=== PATIENT | female | born 1995 | race American Indian/Alaskan Native ===

== ENCOUNTER 2017-10-17 07:22 | Inpatient (IN) | payer MEDICAID ==
--- NOTE | 2017-10-17 08:00 | History and Physical Report ---
History of Present Illness Date of examination: 10/17/17 Chief complaint: PPROM @ 29 weeks, 10/17/17 @ 0200 History of present illness: EDC Calculations LMP: 12/27/2017 Past History : 2 Term Births: 1 Premature Births: 0 Living Children: 1 Para: 1 Mult. Births: 0 Prev : 0 Aborta: 0 Elect. Ab: 0 Spont. Ab: 0 Ectopics: 0 # 1 Delivery date: 2013 Weeks Gestation: term labor: no Delivery type: Delivery location: [facility] [place] Sex: Female weight: 6? Past Medical History: Negative Past Medical History Past Surgical History: breast bx right side, unsure results but was told benign Past Medical History Anesthesia Complications: negative Anemia: negative Autoimmune Disorder: negative Bleeding Disorder: negative Blood Transfusions: negative Diabetes: negative Heart Disease: negative Hypertension: negative Hepatitis/Liver Disease: negative Kidney Disease/UTI: negative Neurologic/Epilepsy/Migraines: negative Phlebitis/Varicosities: negative Psychiatric: negative Pulmonary Disease/Asthma: negative Thyroid Disease: negative Hospitalizations: negative 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 of genital herpes: no Partner hx. of genital herpes: no Rash, Viral, or Febrile illness since last LMP? no Varicella/Chicken Pox Status: Previous Disease Genetic History Congenital Heart Defect: Mom: no Dad: no Rivera Disease: Mom: no Dad: no Thalassemia Mom: no Dad: no Neural Tube Defect Mom: no Dad: no Down's Syndrome Mom: no Dad: no Refugio-Sachs Mom: no Dad: no Sickle Cell Disease/Trait Mom: no Dad: no Hemophilia Mom: no Dad: no Muscular Dystrophy Mom: no Dad: no Cystic Fibrosis Mom: no Dad: no [place] Chorea Mom: no Dad: no Mental Retardation Mom: no Dad: no Fragile X Mom: no Dad: no Other Genetic/Chromosomal Disorder Mom: no Dad: no Child w/other defect Mom: no Dad: no Enviromental Exposures Xray Exposure: no Medication, drug, or alcohol use since LMP: no Chemical/Other Exposure: no Exposure to Cat Liter: no Hx of Parvovirus (Fifth Disease): no Occupational Exposure to Children: none Current Allergies (reviewed today): No known allergies Past History Past Medical History: other (see HPI) Past Surgical History: other (see HPI) 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) Family/Genetic History: other (see HPI) - Obstetrical History Expected Date of Delivery: 12/27/17 Actual Gestation: 29 Week(s) 6 Day(s) : 2 Para: 1 Hx # Term Pregnancies: 1 Number of Pregnancies: 0 Spontaneous Abortions: 0 Induced : 0 Number of Living Children: 1 Medications and Allergies Allergies Allergy/AdvReac Type Severity Reaction Status Date / Time No Known Allergies Allergy Verified 10/17/17 07:36 Home Medications Medication Instructions Recorded Confirmed Last Taken Type Vit Calc,Iron,Folic 1 each PO DAILY 10/17/17 10/17/17 10/16/17 20:00 History [ Vitamins] 1 Active Meds: Active Medications Lactated Ringer's (Lactated Ringers) 1,000 mls @ 999 mls/hr IV BOLUS ONE Stop: 10/17/17 08:38 Review of Systems All systems: negative - Vital Signs Vital signs: Vital Signs Pulse BP 80 113/72 10/17/17 07:51 10/17/17 07:51 Temp Pulse Resp BP Pulse Ox 80 113/72 10/17/17 07:51 10/17/17 07:51 - Physical Exam Breasts: Positive: normal Cardiovascular: Regular rate Lungs: Positive: Clear to auscultation, Normal air movement Abdomen: Positive: normal appearance, soft Genitourinary (Female): Positive: normal external genitalia, normal perenium Vulva: both: normal Vagina: Positive: normal moisture (+ clear amniotic fluid) Uterus: Positive: normal size, normal contour Anus/Rectum: Positive: normal perianal skin Extremities: Positive: normal Deep Tendon Reflex Grade: Normal +2 - Obstetrical FHR: auscultation normal, category 1 Uterine Contraction Monitor Mode: External Cervical Dilatation: 1.5 (per triage nurse, not rechecked d/t PPROM) Uterine Contraction Pattern: Irregular Uterine Tone Measurement Phase: Contraction Uterine Contraction Intensity: Mild Results Result Diagrams: 10/17/17 08:15 All other labs normal. Assessment and Plan 22y/o @ 29+6 weeks admitted as antepartum patient d/t PPROM this morning @ 0200 - clear fluid. Gross SROM with + nitrazine. She reports occasional lower abd pain. Plan to admit to labor and delivery for steroids, mag sulfate, IV antibiotics, u/s for EFW/KRISTIN and presentation, NICU and AMFM consult. Plan reviewed with patient, opportunity provided for questions. All questions addressed. Admission orders in EMR. Dr. Torres consulted. - Patient Problems (1) 29 weeks gestation of Current Visit: Yes Status: Acute (2) premature rupture of membranes (PPROM) with unknown onset of labor Current Visit: Yes Status: Acute
[2017-10-17] MEDS ORDERED: ALUM-MAG HYDROX-SIMETH 200-200-20MG/5ML PO PRN (09:00)
[2017-10-17] MEDS ORDERED: TYLENOL PO PRN (09:00)
[2017-10-17] MEDS ORDERED: LACTATED RINGERS 1,000 ML IV ONE (09:00)
[2017-10-17] MEDS ORDERED: TUCKS PAD TP PRN (09:00)
[2017-10-17] MEDS ORDERED: COLACE PO PRN (09:00)
[2017-10-17] MEDS ORDERED: ZOFRAN IV PRN (09:00)
[2017-10-17] MEDS ORDERED: BENADRYL PO PRN (09:00)
[2017-10-17] MEDS: CELESTONE SOLUSPAN IM SCH (09:10)
[2017-10-17] MEDS: POLYCILLIN/NS 2 GM/100 ML 2 GM/100 ML BAG IV SCH ×3 (09:15→21:26)
[2017-10-17 09:30] LABS: Basophils % (Auto) 0.5 % (0.0-1.8); Eosinophils # (Auto) 0.1 K/mm3 (0.0-0.4); Eosinophils % (Auto) 1.7 % (0.0-4.3); Hematocrit 28.3 % (30.3-42.9); Hemoglobin 9.6 gm/dl (10.1-14.3); Lymphocytes # (Auto) 1.3 K/mm3 (1.2-5.4); Lymphocytes % (Auto) 25.3 % (13.4-35.0); Mean Corpuscular HGB Conc 34 % (30-34); Mean Corpuscular Hemoglobin 30 pg (28-32); Mean Corpuscular Volume 89 fl (79-97); Monocytes # (Auto) 0.4 K/mm3 (0.0-0.8); Monocytes % (Auto) 8.7 % (0.0-7.3); Platelet Count 169 K/mm3 (140-440); Red Blood Count 3.18 M/mm3 (3.65-5.03); Red Cell Distribution Width 12.7 % (13.2-15.2)
[2017-10-17] MEDS ORDERED: SUDAFED PO PRN (09:30)
[2017-10-17] MEDS ORDERED: DEEP SEA NS PRN (09:30)
[2017-10-17] MEDS ORDERED: MYLICON PO PRN (09:30)
[2017-10-17 09:43] LABS: Bacteria,Urine 1+ /HPF (Negative); Bilirubin,Urine NEG (Negative); Blood,Urine SM (Negative); Color,Urine Yellow (Yellow); Mucus,Urine FEW /HPF; Protein,Urine <15 mg/dL mg/dL (Negative); Urobilinogen,Urine < 2.0 mg/dL (<2.0)
[2017-10-17] MEDS: MAGNESIUM SULFATE 40GM/1000ML 40 GM/1,000 ML BAG IV SCH (09:56)
[2017-10-17] MEDS ORDERED: PRENATAL VITAMIN PO SCH (10:00)
[2017-10-17] MEDS ORDERED: MAGNESIUM SULFATE 4GM/100ML 4 GM/100 ML BAG IV ONE (10:00)
[2017-10-17] MEDS ORDERED: AMBIEN PO PRN (10:00)
[2017-10-17] MEDS ORDERED: MILK OF MAGNESIA PO PRN (10:00)
--- NOTE | 2017-10-17 10:57 | Ultrasound Report ---
OB ULTRASOUND FOLLOWUP History estimated weight, presentation, KRISTIN. Technique: Transabdominal ultrasound with Doppler interrogation. Gestation: Single Position: Cephalic Amniotic Fluid: Lower limits of normal KRISTIN = 7.1 cm Heart Rate: 143 BPM BPD: 7.4 cm = 29 w 4 d HC: 27.7 cm = 30 w 2 d AC: 24.1 cm = 28 w 3 d FL: 6.0 cm = 31 w 3 d HC/AC Ratio: 1.2 Cephalic Index: 76.6 Estimated Weight: 1434 grams. 31st percentile. Clinical age = 29 w 6 d EDC: 12/27/17 US Gest. Age = 30 w 0 d EDC: 12/26/17 IMPRESSION: Viable, single intrauterine as described.
[2017-10-17] MEDS: ZITHROMAX 500 MG in NACL 0.9% 250ML 250 ML IV SCH (11:34)
--- NOTE | 2017-10-17 21:31 | Consultation ---
History of Present Illness Consult date: 10/17/17 Requesting physician: RIYA MONTENEGRO Documentation - Maternal Info Events: Premature Rupture Membrane Maternal Blood Type: B (+) positive HbsAg: Negative HIV: Negative RPR/VDRL: Non-reactive Group Beta Strep: Unknown Rubella: Immune Amniotic Membrane Rupture Date: 10/17/17 Amniotic Membrane Rupture Time: 02:00 - information: Height 5 ft 3 in Medications and Allergies Allergies Allergy/AdvReac Type Severity Reaction Status Date / Time No Known Allergies Allergy Verified 10/17/17 07:36 Home Medications Medication Instructions Recorded Confirmed Last Taken Type Vit Calc,Iron,Folic 1 each PO DAILY 10/17/17 10/17/17 10/16/17 20:00 History [ Vitamins] 1 Active Meds: Active Medications Acetaminophen (Tylenol) 650 mg PO Q4H PRN PRN Reason: Pain MILD(1-3)/Fever >100.5/MOTTA Al Hydrox/Mg Hydrox/Simethicone (Alum-Mag Hydrox-Simeth [id number]/5ml) 30 ml PO Q6H PRN PRN Reason: Indigestion Betamethasone Acet/Betameth SodPhos (Celestone Soluspan) 12 mg IM Q24HR JOHNNY Stop: 10/18/17 10:01 Last Admin: 10/17/17 09:10 Dose: 12 mg Diphenhydramine HCl (Benadryl) 25 mg PO Q6H PRN PRN Reason: Itching Docusate Sodium (Colace) 100 mg PO Q12H PRN PRN Reason: Constipation Guaifenesin (Guaifenesin Dm Syrup) 10 ml PO Q6H PRN PRN Reason: Cough Ampicillin Sodium (Polycillin/Ns 2 Gm/100 Ml) 2 gm in 100 mls @ 100 mls/hr IV Q6H JOHNNY; Protocol Stop: 10/19/17 03:59 Last Admin: 10/17/17 15:12 Dose: 100 mls/hr Azithromycin 500 mg/ Sodium (Chloride) 250 mls @ 250 mls/hr IV Q24HR JOHNNY Last Admin: 10/17/17 11:34 Dose: 250 mls/hr Magnesium Sulfate (Magnesium Sulfate 40gm/1000ml) 40 gm in 1,000 mls @ 50 mls/ hr IV DIRECT JOHNNY Last Admin: 10/17/17 09:56 Dose: 2 gm/hr, 50 mls/hr Magnesium Hydroxide (Milk Of Magnesia) 30 ml PO QHS PRN PRN Reason: Laxative Effect Multivitamins/Iron/Calcium ( Vitamin) 1 each PO QDAY JOHNNY Ondansetron HCl (Zofran) 4 mg IV Q6H PRN PRN Reason: Nausea And Vomiting Pseudoephedrine HCl (Sudafed) 30 mg PO Q4H PRN PRN Reason: Nasal Congestion Simethicone (Mylicon) 80 mg PO Q6H PRN PRN Reason: Gas pain Sodium Chloride (Deep Sea) 2 spray NS Q4H PRN PRN Reason: Congestion Witch Dary/Glycerin (Tucks Pad) 1 each TP PRN PRN PRN Reason: Hemorrhoids Zolpidem Tartrate (Ambien) 10 mg PO ONCE PRN PRN Reason: Sleep Exam Vital Signs Pulse BP 80 113/72 10/17/17 07:51 10/17/17 07:51 Temp Pulse Resp BP Pulse Ox 97.7 F 91 H 20 114/68 100 10/17/17 20:00 10/17/17 20:59 10/17/17 20:00 10/17/17 20:59 10/17/17 20:00 Results - Laboratory Findings 10/17/17 08:15 Abnormal lab results 10/17/17 10/17/17 10/17/17 Range/Units 08:15 13:55 20:07 RBC 3.18 L (3.65-5.03) M/mm3 Hgb 9.6 L (10.1-14.3) gm/dl Hct 28.3 L (30.3-42.9) % RDW 12.7 L (13.2-15.2) % [place] % (Auto) 8.7 H (0.0-7.3) % Magnesium 4.60 H 5.40 H (1.7-2.3) mg/dL Assessment and Plan Discussed with Mother and FOB (FOB was on phone and Mother asked that FOB be included on speaker phone) delivery room process once was delivered. Discussed possible need for intubation and need of surfactant administration as well as possible need for CPAP. Also discussed need for Umbilical catheter administation for [facility] IV access and IV nutrition. Mother voices understanding and voices that she would like to breastfeed. Informed mother that we encourage her to pump for breastmilk for once born for feeds once respiratory status of is stabilized. Discussed the need to follow with [facility] for risk of IVH d/t prematurity less than 32 weeks. Also, discussed need for eye exams @ 30 days of age for born 30 weeks or less for ROP. Parents asked appropriate questions and appropiately concerned for . Discussed survival rate of 85-90% for 29-30 week gestation newborns. Mother currently on MgSo4 and reports that she will receive her second dose of betamethasone at 0900 11/18 and is on antibiotics d/t PROM. Mother voices that she has once previous child that will soon turn 3 and was born at 37 weeks with no medical problems at or currently. Both Mother and FOB repport no major illnesses.
[2017-10-17] MEDS: LACTATED RINGERS 1,000 ML IV SCH (23:26)
[2017-10-18] MEDS: POLYCILLIN/NS 2 GM/100 ML 2 GM/100 ML BAG IV SCH ×2 (02:53→13:37)
[2017-10-18] MEDS: MAGNESIUM SULFATE 40GM/1000ML 40 GM/1,000 ML BAG IV SCH (04:52)
--- NOTE | 2017-10-18 07:26 | Progress Note ---
Assessment and Plan pt resting states she has tolerated therapy with minimal SE. Reports +FM, LOF continues Leaking. VSS Cat 1 strip for 30 weeks No CTX recorded nor reported. MGSO4 continues @ 2gm/hr Second dose BMZ due @ 0900. IUP @ 30 weeks with PPROM P : continue POC as ordered. to be consulted. - Patient Problems (1) 30 weeks gestation of Current Visit: Yes Status: Acute Subjective - Subjective Date of service: 10/18/17 (pt w/o complaint) Principal diagnosis: IUP @ 30w0d with PPROM Patient reports: loss of fluid (pt does report leaking fluid continues), movement normal Objective - Vital Signs Vital Signs: Vital Signs - 12hr 10/17/17 10/17/17 10/17/17 19:28 19:58 20:00 Temperature 97.7 F Pulse Rate 96 H 94 H 94 H Respiratory 20 Rate Blood Pressure 108/58 115/59 Blood Pressure 115/59 [Right] O2 Sat by Pulse 100 Oximetry 10/17/17 10/17/17 10/17/17 20:28 20:59 21:29 Temperature Pulse Rate 96 H 91 H 96 H Respiratory Rate Blood Pressure 101/56 114/68 105/57 Blood Pressure [Right] O2 Sat by Pulse Oximetry 10/17/17 10/17/17 10/17/17 21:58 22:28 22:58 Temperature Pulse Rate 91 H 83 87 Respiratory Rate Blood Pressure 111/59 92/54 105/57 Blood Pressure [Right] O2 Sat by Pulse Oximetry 10/17/17 10/17/17 10/17/17 23:27 23:28 23:30 Temperature 97.2 F L Pulse Rate 86 86 86 Respiratory 20 Rate Blood Pressure 106/59 Blood Pressure 106/59 [Right] O2 Sat by Pulse 100 100 Oximetry 10/17/17 10/18/17 10/18/17 23:59 00:28 00:59 Temperature Pulse Rate 88 86 83 Respiratory Rate Blood Pressure 109/56 108/60 109/57 Blood Pressure [Right] O2 Sat by Pulse Oximetry 10/18/17 10/18/17 10/18/17 01:28 01:58 02:28 Temperature Pulse Rate 77 75 77 Respiratory Rate Blood Pressure 95/53 88/52 92/51 Blood Pressure [Right] O2 Sat by Pulse Oximetry 10/18/17 10/18/17 10/18/17 02:30 02:35 02:40 Temperature Pulse Rate 85 76 76 Respiratory Rate Blood Pressure Blood Pressure [Right] O2 Sat by Pulse 96 96 96 Oximetry 10/18/17 10/18/17 10/18/17 02:45 02:50 02:55 Temperature Pulse Rate 75 79 74 Respiratory Rate Blood Pressure Blood Pressure [Right] O2 Sat by Pulse 96 93 95 Oximetry 10/18/17 10/18/17 10/18/17 02:58 03:00 03:05 Temperature Pulse Rate 73 70 72 Respiratory Rate Blood Pressure 99/56 Blood Pressure [Right] O2 Sat by Pulse 96 96 Oximetry 10/18/17 10/18/17 10/18/17 03:10 03:15 03:20 Temperature Pulse Rate 72 74 74 Respiratory Rate Blood Pressure Blood Pressure [Right] O2 Sat by Pulse 96 96 96 Oximetry 10/18/17 10/18/17 10/18/17 03:25 03:28 03:30 Temperature Pulse Rate 75 75 76 Respiratory Rate Blood Pressure 100/58 Blood Pressure [Right] O2 Sat by Pulse 96 96 Oximetry 10/18/17 10/18/17 10/18/17 03:35 03:40 03:45 Temperature Pulse Rate 76 74 76 Respiratory Rate Blood Pressure Blood Pressure [Right] O2 Sat by Pulse 96 96 96 Oximetry 10/18/17 10/18/17 10/18/17 03:50 03:55 03:56 Temperature Pulse Rate 75 77 75 Respiratory Rate Blood Pressure Blood Pressure [Right] O2 Sat by Pulse 96 96 93 Oximetry 10/18/17 10/18/17 10/18/17 03:59 04:00 04:05 Temperature 97.4 F L Pulse Rate 71 71 70 Respiratory 16 Rate Blood Pressure 97/53 Blood Pressure 97/53 [Right] O2 Sat by Pulse 97 96 Oximetry 10/18/17 10/18/17 10/18/17 04:10 04:15 04:19 Temperature Pulse Rate 74 87 83 Respiratory Rate Blood Pressure Blood Pressure [Right] O2 Sat by Pulse 96 97 92 Oximetry 10/18/17 10/18/17 10/18/17 04:20 04:25 04:28 Temperature Pulse Rate 78 71 71 Respiratory Rate Blood Pressure 98/55 Blood Pressure [Right] O2 Sat by Pulse 99 99 Oximetry 10/18/17 10/18/1710/18/18 04:30 04:35 04:40 Temperature Pulse Rate 70 68 69 Respiratory Rate Blood Pressure Blood Pressure [Right] O2 Sat by Pulse 99 98 98 Oximetry 10/18/17 10/18/17 10/18/17 04:45 04:50 04:55 Temperature Pulse Rate 72 77 81 Respiratory Rate Blood Pressure Blood Pressure [Right] O2 Sat by Pulse 97 99 98 Oximetry 10/18/17 10/18/17 10/18/17 04:58 05:00 05:05 Temperature Pulse Rate 76 80 74 Respiratory Rate Blood Pressure 105/57 Blood Pressure [Right] O2 Sat by Pulse 99 98 Oximetry 10/18/17 10/18/17 10/18/17 05:10 05:15 05:20 Temperature Pulse Rate 74 71 73 Respiratory Rate Blood Pressure Blood Pressure [Right] O2 Sat by Pulse 98 97 97 Oximetry 10/18/17 10/18/17 10/18/17 05:25 05:28 05:30 Temperature Pulse Rate 74 69 77 Respiratory Rate Blood Pressure 108/51 Blood Pressure [Right] O2 Sat by Pulse 97 95 Oximetry 10/18/17 10/18/17 10/18/17 05:35 05:40 05:45 Temperature Pulse Rate 76 76 71 Respiratory Rate Blood Pressure Blood Pressure [Right] O2 Sat by Pulse 96 97 97 Oximetry 10/18/17 10/18/17 10/18/17 05:50 05:55 05:58 Temperature Pulse Rate 74 76 71 Respiratory Rate Blood Pressure 107/55 Blood Pressure [Right] O2 Sat by Pulse 96 97 Oximetry 10/18/17 10/18/17 10/18/17 06:00 06:05 06:10 Temperature Pulse Rate 77 69 75 Respiratory Rate Blood Pressure Blood Pressure [Right] O2 Sat by Pulse 97 98 97 Oximetry 10/18/17 10/18/17 10/18/17 06:15 06:20 06:24 Temperature Pulse Rate 76 80 96 H Respiratory Rate Blood Pressure Blood Pressure [Right] O2 Sat by Pulse 98 96 91 Oximetry 10/18/17 10/18/17 10/18/17 06:25 06:28 06:30 Temperature Pulse Rate 87 78 75 Respiratory Rate Blood Pressure 112/74 Blood Pressure [Right] O2 Sat by Pulse 98 98 Oximetry 08/30/18 08/30/18 08/30/18 06:35 06:40 06:45 Temperature Pulse Rate 71 72 74 Respiratory Rate Blood Pressure Blood Pressure [Right] O2 Sat by Pulse 99 98 98 Oximetry 10/18/17 10/18/17 10/18/17 06:50 06:55 06:58 Temperature Pulse Rate 71 78 77 Respiratory Rate Blood Pressure 101/57 Blood Pressure [Right] O2 Sat by Pulse 99 98 Oximetry - Exam Breasts: deferred Cardiovascular: Regular rate Lungs: Clear to auscultation, Normal air movement Abdomen: Present: normal appearance, soft. Absent: distention, tenderness Uterus: Present: normal FHR: auscultation normal, category 1 Uterine Contraction Monitor Mode: External Uterine Contraction Pattern: Absent Uterine Tone Measurement Phase: Resting Extremities: normal Deep Tendon Reflex Grade: Normal +2 - Labs Labs: Abnormal Labs 10/17/17 10/17/17 10/17/17 08:15 13:55 20:07 RBC 3.18 L Hgb 9.6 L Hct 28.3 L RDW 12.7 L [place] % (Auto) 8.7 H Magnesium 4.60 H 5.40 H 10/18/17 02:27 RBC Hgb Hct RDW [place] % (Auto) Magnesium 5.70 H Laboratory Results - last 24 hr 10/17/17 10/17/17 10/17/17 07:35 08:15 08:15 WBC 5.1 RBC 3.18 L Hgb 9.6 L Hct 28.3 L MCV 89 MCH 30 MCHC 34 RDW 12.7 L Plt Count 169 Lymph % (Auto) 25.3 [place] % (Auto) 8.7 H Eos % (Auto) 1.7 Baso % (Auto) 0.5 Lymph # 1.3 [place] # 0.4 Eos # 0.1 Baso # 0.0 Seg Neutrophils % 63.8 Seg Neutrophils # 3.3 Magnesium Urine Color Yellow Urine Turbidity Clear Urine pH 7.0 Ur Specific [place] 1.006 Urine Protein <15 mg/dl Urine Glucose (UA) Neg Urine Ketones Tr Urine Blood Sm Urine Nitrite Neg Urine Bilirubin Neg Urine Urobilinogen < 2.0 Ur Leukocyte Esterase Sm Urine WBC (Auto) 6.0 Urine RBC (Auto) 3.0 U Epithel Cells (Auto) 3.0 Urine Bacteria (Auto) 1+ Urine Mucus Few Blood Type B POSITIVE Antibody Screen Negative 10/17/17 10/17/17 10/18/17 13:55 20:07 02:27 WBC RBC Hgb Hct MCV MCH MCHC RDW Plt Count Lymph % (Auto) [place] % (Auto) Eos % (Auto) Baso % (Auto) Lymph # [place] # Eos # Baso # Seg Neutrophils % Seg Neutrophils # Magnesium 4.60 H 5.40 H 5.70 H Urine Color Urine Turbidity Urine pH Ur Specific [place] Urine Protein Urine Glucose (UA) Urine Ketones Urine Blood Urine Nitrite Urine Bilirubin Urine Urobilinogen Ur Leukocyte Esterase Urine WBC (Auto) Urine RBC (Auto) U Epithel Cells (Auto) Urine Bacteria (Auto) Urine Mucus Blood Type Antibody Screen
--- NOTE | 2017-10-18 08:12 | Consultation ---
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) Family/Genetic History: other (see HPI) - Obstetrical History : 2 Medications and Allergies Allergies Allergy/AdvReac Type Severity Reaction Status Date / Time No Known Allergies Allergy Verified 10/17/17 07:36 Home Medications Medication Instructions Recorded Confirmed Last Taken Type Vit Calc,Iron,Folic 1 each PO DAILY 10/17/17 10/17/17 10/16/17 20:00 History [ Vitamins] 1 Active Meds: Active Medications Acetaminophen (Tylenol) 650 mg PO Q4H PRN PRN Reason: Pain MILD(1-3)/Fever >100.5/MOTTA Al Hydrox/Mg Hydrox/Simethicone (Alum-Mag Hydrox-Simeth [id number]/5ml) 30 ml PO Q6H PRN PRN Reason: Indigestion Betamethasone Acet/Betameth SodPhos (Celestone Soluspan) 12 mg IM Q24HR JOHNNY Stop: 10/18/17 10:01 Last Admin: 10/17/17 09:10 Dose: 12 mg Diphenhydramine HCl (Benadryl) 25 mg PO Q6H PRN PRN Reason: Itching Docusate Sodium (Colace) 100 mg PO Q12H PRN PRN Reason: Constipation Guaifenesin (Guaifenesin Dm Syrup) 10 ml PO Q6H PRN PRN Reason: Cough Ampicillin Sodium (Polycillin/Ns 2 Gm/100 Ml) 2 gm in 100 mls @ 100 mls/hr IV Q6H JOHNNY; Protocol Stop: 10/19/17 03:59 Last Admin: 10/18/17 02:53 Dose: 100 mls/hr Azithromycin 500 mg/ Sodium (Chloride) 250 mls @ 250 mls/hr IV Q24HR JOHNNY Last Admin: 10/17/17 11:34 Dose: 250 mls/hr Magnesium Sulfate (Magnesium Sulfate 40gm/1000ml) 40 gm in 1,000 mls @ 50 mls/ hr IV DIRECT JOHNNY Last Admin: 10/18/17 04:52 Dose: 2 gm/hr, 50 mls/hr Lactated Ringer's (Lactated Ringers) 1,000 mls @ 75 mls/hr IV DIRECT JOHNNY Last Admin: 10/17/17 23:26 Dose: 75 mls/hr Magnesium Hydroxide (Milk Of Magnesia) 30 ml PO QHS PRN PRN Reason: Laxative Effect Multivitamins/Iron/Calcium ( Vitamin) 1 each PO QDAY JOHNNY Ondansetron HCl (Zofran) 4 mg IV Q6H PRN PRN Reason: Nausea And Vomiting Pseudoephedrine HCl (Sudafed) 30 mg PO Q4H PRN PRN Reason: Nasal Congestion Simethicone (Mylicon) 80 mg PO Q6H PRN PRN Reason: Gas pain Sodium Chloride (Deep Sea) 2 spray NS Q4H PRN PRN Reason: Congestion Witch Dary/Glycerin (Tucks Pad) 1 each TP PRN PRN PRN Reason: Hemorrhoids Zolpidem Tartrate (Ambien) 10 mg PO ONCE PRN PRN Reason: Sleep - Vital Signs Vital signs: Vital Signs Pulse BP 80 113/72 10/17/17 07:51 10/17/17 07:51 Temp Pulse Resp BP Pulse Ox 97.4 F L 93 H 16 102/61 100 10/18/17 04:00 10/18/17 08:11 10/18/17 04:00 10/18/17 07:59 10/18/17 08:11 Results Result Diagrams: 10/17/17 08:15 Abnormal lab results 10/17/17 10/17/17 10/17/17 Range/Units 08:15 13:55 20:07 RBC 3.18 L (3.65-5.03) M/mm3 Hgb 9.6 L (10.1-14.3) gm/dl Hct 28.3 L (30.3-42.9) % RDW 12.7 L (13.2-15.2) % [place] % (Auto) 8.7 H (0.0-7.3) % Magnesium 4.60 H 5.40 H (1.7-2.3) mg/dL 10/18/17 Range/Units 02:27 RBC (3.65-5.03) M/mm3 Hgb (10.1-14.3) gm/dl Hct (30.3-42.9) % RDW (13.2-15.2) % [place] % (Auto) (0.0-7.3) % Magnesium 5.70 H (1.7-2.3) mg/dL All other labs normal. Assessment and Plan [facility] Pt seen Full consult to follow
[2017-10-18] MEDS: CELESTONE SOLUSPAN IM SCH (10:10)
[2017-10-18] MEDS: LACTATED RINGERS 1,000 ML IV SCH (11:27)
[2017-10-18] MEDS ORDERED: ANCEF/STERILE WATER 2 GM/20 ML 0 GM/0 ML SYRINGE IV ONE (13:51)
[2017-10-18] MEDS: ZITHROMAX 500 MG in NACL 0.9% 250ML 250 ML IV SCH (14:03)
--- NOTE | 2017-10-18 17:03 | Event Note ---
Date: 10/18/17 (BPP completed) BPP 2 made aware Orders received.
[2017-10-18] MEDS ORDERED: PEPCID IV ONE (18:03)
[2017-10-18] MEDS ORDERED: REGLAN IV ONE (18:03)
--- NOTE | 2017-10-18 18:13 | Progress Note ---
Assessment and Plan Strip was reveiwed earlier with Dr. Del Rosario, MgSO4 was discontinued after second dose of steroids were given. BPP was order after an appropriate amount of time was givne to metabolize the MgSO4. BPP 03/29 noted, strip again reviewed at my arrival to L&D, acceleration While counselling patinet re: BPP beside US performed that confirmed no movement even with moving her abdomen. No accelereation with scalp stimulation. Options reviewed, risks w/ SANDRA and c/s explained, questions encouraged and answeed. Consents reviewed and signed, she voiced understanding and desires to proceed with c/s. - Patient Problems (1) Abnormal test Current Visit: Yes Status: Acute (2) 30 weeks gestation of Current Visit: Yes Status: Acute (3) premature rupture of membranes (PPROM) with unknown onset of labor Current Visit: Yes Status: Acute Subjective - Subjective Date of service: 10/18/17 Principal diagnosis: IUP @ 30w0d with PPROM Patient reports: loss of fluid (pt does report leaking fluid continues), movement normal Objective - Vital Signs Vital Signs: Vital Signs - 12hr 10/18/17 10/18/17 10/18/17 06:05 06:10 06:15 Temperature Pulse Rate 69 75 76 Respiratory Rate Blood Pressure Blood Pressure [Right] O2 Sat by Pulse 98 97 98 Oximetry 10/18/17 10/18/17 10/18/17 06:20 06:24 06:25 Temperature Pulse Rate 80 96 H 87 Respiratory Rate Blood Pressure Blood Pressure [Right] O2 Sat by Pulse 96 91 98 Oximetry 10/18/17 10/18/17 10/18/17 06:28 06:30 06:35 Temperature Pulse Rate 78 75 71 Respiratory Rate Blood Pressure 112/74 Blood Pressure [Right] O2 Sat by Pulse 98 99 Oximetry 10/18/17 10/18/17 10/18/17 06:40 06:45 06:50 Temperature Pulse Rate 72 74 71 Respiratory Rate Blood Pressure Blood Pressure [Right] O2 Sat by Pulse 98 98 99 Oximetry 10/18/17 10/18/17 10/18/17 06:55 06:58 07:00 Temperature Pulse Rate 78 77 77 Respiratory Rate Blood Pressure 101/57 Blood Pressure [Right] O2 Sat by Pulse 98 98 Oximetry 10/18/17 10/18/17 10/18/17 07:05 07:10 07:15 Temperature Pulse Rate 78 78 78 Respiratory Rate Blood Pressure Blood Pressure [Right] O2 Sat by Pulse 99 99 100 Oximetry 10/18/17 10/18/17 10/18/17 07:20 07:25 07:28 Temperature Pulse Rate 82 83 82 Respiratory Rate Blood Pressure 101/57 Blood Pressure [Right] O2 Sat by Pulse 98 98 Oximetry 10/18/17 10/18/17 10/18/17 07:30 07:35 07:40 Temperature Pulse Rate 84 84 83 Respiratory Rate Blood Pressure Blood Pressure [Right] O2 Sat by Pulse 100 100 100 Oximetry 10/18/17 10/18/17 10/18/17 07:45 07:50 07:55 Temperature Pulse Rate 92 H 90 89 Respiratory Rate Blood Pressure Blood Pressure [Right] O2 Sat by Pulse 97 98 98 Oximetry 10/18/17 10/18/17 10/18/17 07:59 08:00 08:06 Temperature Pulse Rate 87 90 93 H Respiratory Rate Blood Pressure 102/61 Blood Pressure [Right] O2 Sat by Pulse 98 100 Oximetry 10/18/17 10/18/17 10/18/17 08:11 08:16 08:21 Temperature Pulse Rate 93 H 92 H 92 H Respiratory Rate Blood Pressure Blood Pressure [Right] O2 Sat by Pulse 100 99 99 Oximetry 10/18/17 10/18/17 10/18/17 08:22 08:26 08:30 Temperature Pulse Rate 94 H 93 H 96 H Respiratory Rate Blood Pressure 100/59 Blood Pressure [Right] O2 Sat by Pulse 92 99 Oximetry 10/18/17 10/18/17 10/18/17 08:31 08:46 08:47 Temperature 97.6 F Pulse Rate 92 H 91 H 90 Respiratory 16 Rate Blood Pressure 93/54 Blood Pressure 93/54 [Right] O2 Sat by Pulse 100 100 Oximetry 10/18/17 10/18/17 10/18/17 08:48 08:58 09:28 Temperature Pulse Rate 91 H 87 83 Respiratory Rate Blood Pressure 88/50 89/50 Blood Pressure [Right] O2 Sat by Pulse 100 Oximetry 10/18/17 10/18/17 10/18/17 09:59 10:28 10:59 Temperature Pulse Rate 83 85 89 Respiratory Rate Blood Pressure 103/59 95/54 92/54 Blood Pressure [Right] O2 Sat by Pulse Oximetry 10/18/17 10/18/17 10/18/17 11:28 11:58 12:29 Temperature Pulse Rate 85 96 H 89 Respiratory Rate Blood Pressure 109/57 99/58 107/60 Blood Pressure [Right] O2 Sat by Pulse Oximetry 10/18/17 10/18/17 10/18/17 17:12 17:17 17:22 Temperature Pulse Rate 91 H 99 H 89 Respiratory Rate Blood Pressure Blood Pressure [Right] O2 Sat by Pulse 97 100 100 Oximetry 10/18/17 10/18/17 10/18/17 17:27 17:32 17:37 Temperature Pulse Rate 118 H 99 H 96 H Respiratory Rate Blood Pressure Blood Pressure [Right] O2 Sat by Pulse 100 100 100 Oximetry 10/18/17 10/18/17 10/18/17 17:40 17:42 17:47 Temperature Pulse Rate 97 H 94 H 105 H Respiratory Rate Blood Pressure Blood Pressure [Right] O2 Sat by Pulse 89 100 100 Oximetry 10/18/17 10/18/17 10/18/17 17:51 17:52 17:57 Temperature Pulse Rate 95 H 91 H 93 H Respiratory Rate Blood Pressure Blood Pressure [Right] O2 Sat by Pulse 92 97 100 Oximetry 10/18/17 10/18/17 17:58 18:02 Temperature Pulse Rate 94 H 94 H Respiratory Rate Blood Pressure 121/71 Blood Pressure [Right] O2 Sat by Pulse 100 Oximetry - Exam Cervical Dilatation: 3 station: 20 Uterine Contraction Frequency (min): -1 - Labs Labs: Abnormal Labs 10/17/17 10/17/17 10/17/17 08:15 13:55 20:07 RBC 3.18 L Hgb 9.6 L Hct 28.3 L RDW 12.7 L [place] % (Auto) 8.7 H Magnesium 4.60 H 5.40 H 10/18/17 10/18/17 02:27 07:46 RBC Hgb Hct RDW [place] % (Auto) Magnesium 5.70 H 5.90 H Laboratory Results - last 24 hr 10/17/17 10/18/17 10/18/17 20:07 02:27 07:46 Magnesium 5.40 H 5.70 H 5.90 H
[2017-10-18] MEDS ORDERED: PHENERGAN PR PRN ×2 (18:21→21:33)
[2017-10-18] MEDS ORDERED: ZOFRAN IV PRN ×2 (18:21→21:33)
[2017-10-18] MEDS ORDERED: NARCAN 0.4 MG/1 ML IV PRN ×2 (18:21→21:33)
[2017-10-18] MEDS ORDERED: BENADRYL IV PRN (18:21)
[2017-10-18] MEDS ORDERED: PHENERGAN PO PRN (18:21)
[2017-10-18] MEDS ORDERED: DILAUDID IV PRN (18:21)
--- NOTE | 2017-10-18 18:21 | Anesthesia Consultation ---
Anesthesia Consult and Med Hx Date of service: 10/18/17 - Airway Anesthetic Teeth Evaluation: Good ROM Head & Neck: Adequate Mental/Hyoid Distance: Adequate Mallampati Class: Class II Intubation Access Assessment: Probably Good - Pre-Operative Health Status ASA Pre-Surgery Classification: ASA2 Proposed Anesthetic Plan: Epidural, Spinal - Pulmonary Hx Asthma: No COPD: No Hx Pneumonia: No - Cardiovascular System Hx Hypertension: No - Central Nervous System Hx Seizures: No Hx Psychiatric Problems: No - Endocrine Hx Renal Disease: No Hx End Stage Renal Disease: No Hx Hypothyroidism: No Hx Hyperthyroidism: No - Hematic Hx Anemia: No Hx Sickle Cell Disease: No - Other Systems Hx Alcohol Use: No
[2017-10-18] MEDS ORDERED: BICITRA PO SCH (19:00)
[2017-10-18] MEDS ORDERED: WATER FOR IRRIG STERILE IR ONE (19:00)
[2017-10-18] MEDS ORDERED: LACTATED RINGERS 1,000 ML IV SCH (19:00)
[2017-10-18] MEDS ORDERED: NACL 0.9% IR ONE (19:00)
[2017-10-18] MEDS ORDERED: ANCEF/STERILE WATER 2 GM/20 ML 2 GM/20 ML SYRINGE IV NR (19:00)
[2017-10-18] MEDS ORDERED: SODIUM CHLORIDE FLUSH SYRINGE 10 ML IV SCH (19:00)
[2017-10-18] MEDS ORDERED: PITOCin/NS 20 UNIT/1000ML DRIP 20 UNITS/1,000 ML BAG IV SCH ×2 (19:00→21:33)
[2017-10-18] MEDS ORDERED: DIPRIVAN 10 MG/ML IV ONE (19:27)
[2017-10-18] MEDS ORDERED: XYLOCAINE MPF 2% ONE ×3 (19:35)
[2017-10-18] MEDS ORDERED: NEO SYNEPHRINE/NS Syringe(OR USE) IV ONE (19:36)
[2017-10-18] MEDS ORDERED: ASTRAMORPH PF 10MG/10ML ONE (19:44)
[2017-10-18] MEDS: TORADOL IV SCH (20:32)
--- NOTE | 2017-10-18 20:35 | Operative Report ---
Operative Report Operative Report: Date: 10/18/2017 Preoperative diagnosis: 1. Intrauterine at 30 weeks gestation 2. Premature rupture of membranes 3. Abnormal testing 4. Nonreassuring heart rate tracing remote from delivery Postoperative diagnosis: 1. Intrauterine at 30 weeks gestation 2. Premature rupture of membranes 3. Abnormal testing 4. Nonreassuring heart rate tracing remote from delivery Procedure: Low uterine transverse incision for delivery Surgeon: Chichi Olvera MD Color Mixer: Taryn Marinelli CST Anesthesia: CSE Anesthesiologist: Shay Logan M.D. Estimated blood loss: 600 mL Urine out: 50 mL Findings: Live born male infant. Weight 3 lbs. 0 oz. Apgars 8 at 1 minute and 8 at 5 minutes. Uterus grossly normal, tubes grossly normal, ovaries grossly normal. Procedure: After risk, benefits, complications, consequences and alternatives for this procedure were discussed with patient and consents were reviewed and signed, she was taken to the OR where CSE anesthesia was placed. She was then placed in the left lateral tilt position, and prepped and draped in the usual sterile fashion. Timeout was performed, and an appropriate level of anesthesia was noted, a Pfannenstiel incision was made and extended to the fascia which was incised and extended in the lateral directions. The overlying fascia was sharply dissected away from the underlying rectus muscles in the superior and inferior directions. The midline was entered bluntly. The vesicouterine fold was incised and with blunt dissection the bladder flap was created. A transverse incision was made in the lower uterine segment and extended in superiolateral direction with finger fractionation. Clear fluid was noted. The was delivered from cephalic position. Mouth and nose were bulb suctioned. Spontaneous cry and excellent tone were noted. Cord was doubly clamped and cut. The was given to /resuscitation team present. The placenta was manually extracted. The uterus was then exteriorized and cleared of any further products of conception or placental tissue. The incision was reapproximated using 0 Vicryl in a running interlocking stitch. Grossly normal uterus, tubes and ovaries were noted. Once hemostasis was noted, the uterus was allowed back into the pelvic cavity. The pelvis was irrigated with warm normal saline. Again hemostasis was noted . Surgicel applied for further hemostasis. Then attention was turned to the rectus muscles. The rectus muscles reapproximated using 0 Vicryl in a simple interrupted stitch x 4. Once hemostasis was noted, the fascia was reapproximated using 0 Vicryl running stitch fashion. Once hemostasis was noted skin incision was reapproximated using 4-0 Vicryl on a Sonu needle in a subcuticular manner. Counts were correct 3. Patient tolerated procedure well state recovery room in stable condition.
[2017-10-18] MEDS ORDERED: D5LR 1,000 ML IV SCH (21:33)
[2017-10-18] MEDS ORDERED: TUCKS PAD TP PRN (21:33)
[2017-10-18] MEDS ORDERED: SODIUM CHLORIDE FLUSH SYRINGE 10 ML IV NR (21:33)
[2017-10-18] MEDS ORDERED: MYLICON PO PRN (21:33)
[2017-10-18] MEDS ORDERED: TYLENOL PR PRN (21:33)
[2017-10-18] MEDS ORDERED: LANSINOH TP PRN (21:33)
[2017-10-18] MEDS ORDERED: MILK OF MAGNESIA PO PRN (21:33)
--- NOTE | 2017-10-18 21:37 | Ultrasound Report ---
FINAL REPORT PROCEDURE: US OB BPP WO NON-STRESS TECHNIQUE: Sonographic evaluation for breathing, movement, tone, and amniotic fluid volume was performed. CPT 21498 HISTORY: 29 weeks, PPROM COMPARISON: No prior studies are available for comparison. FINDINGS: A single intrauterine gestation is identified with a heart rate of 134 beats per minute. Amniotic fluid volume: Normal-score 2. At least one vertical pocket > 2 cm or more in vertical axis. breathing: Score 0 movement: Score 0 tone: Score 0 Score: 2 of 8 IMPRESSION: Biophysical profile score is 2 of 8.
[2017-10-19] MEDS: ANCEF/NS 1 GM/50 ML 1 GM/50 ML BAG IV SCH ×2 (00:30→08:50)
[2017-10-19] MEDS: TORADOL IV SCH ×2 (03:00→08:51)
[2017-10-19 07:36] LABS: Hematocrit 23.8 % (30.3-42.9); Hemoglobin 7.9 gm/dl (10.1-14.3)
--- NOTE | 2017-10-19 08:46 | Progress Note ---
Assessment and Plan patient doing well @ 12hs post delivery, reports pain well controlled with medication. [place] to be d/c'd this AM and patient encouraged to go see infant in NICU via wheelchair. encouraged pumping breastmilk for baby. VSSAF, output adequate, H&H 7.9/23.8 (asymptomatic - existing anemia with drop in H&H after surgery).incision D&I. Continue postop pathway. - Patient Problems (1) delivery delivered Current Visit: Yes Status: Acute Subjective - Subjective Date of service: 10/19/17 Principal diagnosis: postop day #1 s/p primary c/s Interval history: EDC Calculations LMP: 12/27/2017 Past History : 2 Term Births: 1 Premature Births: 0 Living Children: 1 Para: 1 Mult. Births: 0 Prev : 0 Aborta: 0 Elect. Ab: 0 Spont. Ab: 0 Ectopics: 0 # 1 Delivery date: 2012 Weeks Gestation: term labor: no Delivery type: Delivery location: [facility] [place] Infant Sex: Female weight: 6? Past Medical History: Negative Past Medical History Past Surgical History: breast bx right side, unsure results but was told benign Past Medical History Anesthesia Complications: negative Anemia: negative Autoimmune Disorder: negative Bleeding Disorder: negative Blood Transfusions: negative Diabetes: negative Heart Disease: negative Hypertension: negative Hepatitis/Liver Disease: negative Kidney Disease/UTI: negative Neurologic/Epilepsy/Migraines: negative Phlebitis/Varicosities: negative Psychiatric: negative Pulmonary Disease/Asthma: negative Thyroid Disease: negative Hospitalizations: negative Surgery (Non-procedures tech): breast bx right side, unsure results but was told benign Abnormal PAP: unsure ORIANA Exposure: negative Infertility: negative Uterine Anomaly: negative Uterine Surgery (not C/S): negative Other Gynecologic Problems: negative Family Hx: denies any family medical hx Social Hx: Single No ETOH/Drugs/Smoking Infection History Hx of STD: none HIV Risk Eval: low risk Hepatitis B Risk Eval: low risk Personal hx. of genital herpes: no Partner hx. of genital herpes: no Rash, Viral, or Febrile illness since last LMP? no Varicella/Chicken Pox Status: Previous Disease Genetic History Congenital Heart Defect: Mom: no Dad: no Rivera Disease: Mom: no Dad: no Thalassemia Mom: no Dad: no Neural Tube Defect Mom: no Dad: no Down's Syndrome Mom: no Dad: no Refugio-Sachs Mom: no Dad: no Sickle Cell Disease/Trait Mom: no Dad: no Hemophilia Mom: no Dad: no Muscular Dystrophy Mom: no Dad: no Cystic Fibrosis Mom: no Dad: no [place] Chorea Mom: no Dad: no Mental Retardation Mom: no Dad: no Fragile X Mom: no Dad: no Other Genetic/Chromosomal Disorder Mom: no Dad: no Child w/other defect Mom: no Dad: no Enviromental Exposures Xray Exposure: no Medication, drug, or alcohol use since LMP: no Chemical/Other Exposure: no Exposure to Cat Liter: no Hx of Parvovirus (Fifth Disease): no Occupational Exposure to Children: none Current Allergies (reviewed today): No known allergies Patient reports: pain well controlled, no flatus, no nauseated [place]: in NICU Objective - Vital Signs Latest vital signs: Vital Signs Temp Pulse Resp BP BP Pulse Ox 10/19/17 04:15 98.5 F 78 20 112/65 10/18/17 22:00 98.3 F 74 18 117/73 98 10/18/17 21:05 98.7 F 18 119/67 100 10/18/17 20:50 15 122/64 100 10/18/17 20:35 12 105/67 100 10/18/17 20:32 15 10/18/17 20:20 15 97/67 100 10/18/17 20:05 98.4 F 16 127/94 100 10/18/17 18:07 90 100 10/18/17 18:02 94 H 100 10/18/17 17:58 94 H 121/71 10/18/17 17:57 93 H 100 10/18/17 17:52 91 H 97 10/18/17 17:51 95 H 92 10/18/17 17:47 105 H 100 10/18/17 17:42 94 H 100 10/18/17 17:40 97 H 89 10/18/17 17:37 96 H 100 10/18/17 17:32 99 H 100 10/18/17 17:27 118 H 100 10/18/17 17:22 89 100 10/18/17 17:17 99 H 100 10/18/17 17:12 91 H 97 10/18/17 12:29 89 107/60 10/18/17 11:58 96 H 99/58 10/18/17 11:28 85 109/57 10/18/17 10:59 89 92/54 10/18/17 10:28 85 95/54 10/18/17 09:59 83 103/59 10/18/17 09:28 83 89/50 10/18/17 08:58 87 88/50 10/18/17 08:48 91 H 100 10/18/17 08:47 90 93/54 10/18/17 08:46 97.6 F 91 H 16 93/54 100 Intake and Output 10/18/17 10/19/17 10/19/17 23:59 07:59 15:59 Intake Total 1200 180 Output Total 100 400 Balance 1100 -220 Intake: IV 1200 Intake, Free Water 180 Output: Urine 100 400 Indwelling Catheter 400 Other: Total, Output Amount 400 Estimated Blood Loss 600 - Exam Breasts: Present: normal Cardiovascular: Present: Regular rate Lungs: Present: Clear to auscultation, Normal air movement Abdomen: Present: normal appearance, soft Vulva: both: normal Uterus: Present: normal, firm, fundal height at umbilicus Extremities: Present: normal Deep Tendon Reflex Grade: Normal +2 Incision: Present: normal, dry, intact - Labs Labs: Abnormal lab results 10/19/17 Range/Units 07:14 Hgb 7.9 L (10.1-14.3) gm/dl Hct 23.8 L (30.3-42.9) %
--- NOTE | 2017-10-19 10:03 | Query-Anemia ---
Rafa Dimas Wade Date:___10/19/17 Seaweed Harvester/CDS:___amie Phone#:____[phone] Exercise your independent professional judgment when responding to this query. Questions asked do not imply a particular answer is desired or expected. We greatly appreciate your clarification on this issue. Clinical Documentation States: 22y/o @ 29+6 weeks admitted as antepartum patient d/t PPROM this morning @ 0200 - clear fluid. Gross SROM with + nitrazine. Preoperative diagnosis: 1. Intrauterine at 30 weeks gestation 2. Premature rupture of membranes 3. Abnormal testing 4. Nonreassuring heart rate tracing remote from delivery Postoperative diagnosis: 1. Intrauterine at 30 weeks gestation 2. Premature rupture of membranes 3. Abnormal testing 4. Nonreassuring heart rate tracing remote from delivery Procedure: Low uterine transverse incision for delivery Estimated blood loss: 600 mL Clinical Findings Show: 10/17/17 10/19/17 Hb 9.6 7.9 Hct 28.3 23.8 Etiology: [ x] Anemia due to acute blood loss [x ] Anemia due to chronic blood loss [ ] Anemia secondary to ESRD [ ] Anemia secondary to neoplastic disease [ ] Iron deficiency anemia due to malabsorption [ ] GI Bleed from: [ ] Anemia of chronic disease ,Other: [ x] Precipitous Drop in Hemoglobin [ x] Precipitous Drop in Hematocrit [ ] Other: [ ] Unable to determine [ ] Comment/Explanation: Present on Admission: [ x] Yes (Y) [ ] Clinically undeterminable (W) [ ] No (N) Please also document response in your Progress Notes and/or Discharge Summary and indicate if the condition was present on admission. MIHAELAD
[2017-10-19] MEDS: PERCOCET 5/325 PO PRN (19:50)
[2017-10-19] MEDS ORDERED: BOOSTRIX IM ONE (20:08)
[2017-10-20] MEDS: PERCOCET 5/325 PO PRN ×3 (01:34→20:01)
[2017-10-20] MEDS ORDERED: BOOSTRIX IM ONE (06:00)
--- NOTE | 2017-10-20 16:12 | Progress Note ---
Assessment and Plan Baby in NICU, continue Post C/S pathway, ? d/c home tomorrow - Patient Problems (1) delivery delivered Current Visit: Yes Status: Acute (2) Abnormal test Current Visit: Yes Status: Resolved (3) 30 weeks gestation of Current Visit: Yes Status: Resolved (4) premature rupture of membranes (PPROM) with unknown onset of labor Current Visit: Yes Status: Resolved (5) Anemia Current Visit: Yes Status: Chronic Qualifiers: Anemia type: other cause Other causes of anemia: other cause, not classified Qualified Code(s): D64.89 - Other specified anemias Plan to address problem: also related, asymptomatice, started FeSO4 Subjective - Subjective Date of service: 10/20/17 Principal diagnosis: postop day #2 s/p primary c/s,PPROM bpp /10 remote from delivery cat 3 Patient reports: appetite normal, voiding normally, pain well controlled, flatus Objective - Vital Signs Latest vital signs: Vital Signs Temp Pulse Resp BP BP Pulse Ox 10/20/17 07:38 98.4 F 69 16 92/47 10/20/17 02:34 18 10/20/17 01:34 18 10/20/17 00:00 98.0 F 67 20 118/70 10/19/17 17:03 99.0 F 82 20 112/70 100 Intake and Output 10/20/17 10/20/17 10/20/17 06:59 14:59 22:59 Intake Total 480 Balance 480 Intake: Oral 480 Other: Total, Intake Amount 240 # Voids Indwelling Catheter 1 Void 1 - Exam Breasts: Absent: engorged Lungs: Present: Normal air movement Abdomen: Present: normal appearance, soft, normal bowel sounds. Absent: distention, tenderness Uterus: Present: fundal height below umbilicus. Absent: tenderness Extremities: Present: normal. Absent: tenderness, edema Incision: Present: normal, dry, intact
[2017-10-20] MEDS: TYLENOL PO PRN (16:59)
[2017-10-20] MEDS: FEOSOL PO SCH (17:00)
[2017-10-21] MEDS ORDERED: DULCOLAX PR PRN (00:12)
[2017-10-21] MEDS: COLACE PO SCH ×2 (00:57→09:55)
[2017-10-21] MEDS: PERCOCET 5/325 PO PRN ×3 (00:59→12:39)
[2017-10-21] MEDS: TYLENOL PO PRN ×2 (09:54→16:36)
[2017-10-21] MEDS: FEOSOL PO SCH (09:55)
--- NOTE | 2017-10-21 10:48 | Discharge Summary ---
Providers - Providers Date of Admission: 10/17/17 08:49 Date of discharge: 10/21/17 Attending physician: LUCIE GILLETTE 10/18/17 21:33 Consult to Business Information Manager [CONS] Routine Reason For Exam: Primary care physician: LUCIE GILLETTE Hospitalization Reason for admission: labor, rupture of membranes Delivery: Procedure: section, primary low transverse Incision: normal, dry Other procedures: none complications: none Discharge diagnosis: delivery [place] baby: male Hospital course: Please see dictated H&P for details. The patient was admitted for premature rupture membranes. The patient's observations she had a biophysical profile of 2 out of 8 and remote from vaginal delivery and decision was made to move to section. Patient underwent above procedure without complications. Her post operative course was benign she was afebrile throughout. Patient postoperative day 1 hematocrit was in an acceptable range. Patient had no orthostatic symptoms. Patient was tolerating regular diet and voiding without difficulty at time of discharge. Patient incision was healing well without evidence of infection. Condition at discharge: Good Disposition: DC-01 TO HOME OR SELFCARE - Discharge Diagnoses (1) delivery delivered Status: Acute (2) 30 weeks gestation of Status: Resolved (3) Abnormal test Status: Resolved (4) premature rupture of membranes (PPROM) with unknown onset of labor Status: Resolved Plan - Discharge Medications Prescriptions: Lidocain2.5%/Prilocai2.5% [Emla] 5 gm TP ONCE #1 tube Ferrous Sulfate [Feosol 325 MG tab] 325 mg PO BID #90 tablet Ibuprofen [Motrin 800 MG tab] 800 mg PO TID PRN #30 tablet PRN Reason: Pain oxyCODONE /ACETAMINOPHEN [Percocet 5/325 mg] 1 - 2 tab PO Q4HR PRN #30 tablet PRN Reason: Pain - Provider Discharge Summary Activity: routine, no sex for 6 weeks, no heavy lifting 4 weeks, no strenuous exercise Diet: routine Instructions: routine Additional instructions: [] Smoking cessation referral if applicable(refer to patient education folder for contact #) [] Refer to [facility]'s [facility] Booklet Call your doctor immediately for: * Fever > 100.5 * Heavy vaginal bleeding ( >1 pad per hour) * Severe persistent headache * Shortness of breath * Reddened, hot, painful area to leg or breast * Drainage or odor from incision. * Keep incision clean and dry at all times and follow doctor's instructions regarding bathing/showering Patient to keep scheduled follow-up appointment on 10/29/2017. - Follow up plan Follow up: LUCIE GILLETTE MD [Primary Care Provider] - 7 Days
[2017-10-21 11:03] VITALS: BP 98/53
== END 2017-10-21 16:41 | disposition home or self-care (01) | DRG 765 ==
LOC: TRG 07:22 → OBSVTOIN 08:49 → LD 08:49 → OB 10-18 21:20
PROVIDERS: ADMIT Obstetrics & Gynecology; ATTEND Obstetrics & Gynecology
PROC: 10D00Z1 Extraction of Products of Conception, Low, Open Approach (ICD-10-PCS; principal; 2017-10-18)
DX: O60.14X0 Preterm labor third trimester with preterm delivery third trimester, not applicable or unspecified (principal); D62 Acute posthemorrhagic anemia; O99.02 Anemia complicating childbirth; O76 Abnormality in fetal heart rate and rhythm complicating labor and delivery; O42.913 Preterm premature rupture of membranes, unspecified as to length of time between rupture and onset of labor, third trimester; Z37.0 Single live birth; Z3A.29 29 weeks gestation of pregnancy
CPT/HCPCS: 36415; 59025; 76816; 76819; 81001; 83735; 85014; 85018; 85025; 86850; 86900; 86901; 87116; 88307; 90471; 90715; 96360; 96372; J0290; J0456; J0690; J0702; J1170; J1885; J2274; J2370; J2590; J2704; J2765; J3475; J7050; J7120; J7121; Q0169